=== PATIENT | female | born 1990 | race African-American/Black ===

== ENCOUNTER 2017-01-28 05:59 | Inpatient (IN) ==
[2017-01-28] MEDS ORDERED: CITRIC ACID/SODIUM CITRATE 30 ML UDCUP PO ONE (06:23)
[2017-01-28] MEDS ORDERED: FAMOTIDINE 20 MG/2 ML VIAL IV ONE (06:23)
[2017-01-28] MEDS ORDERED: ceFAZolin 2,000 MG in PREMIX 1 EACH IV ONE (06:23)
[2017-01-28] MEDS ORDERED: OXYTOCIN/LR 20 UNIT/1,000 ML BAG IV ONE ×2 (06:25→10:40)
[2017-01-28] MEDS: LACTATED RINGERS 1,000 ML IV SCH ×3 (06:44→22:42)
[2017-01-28 06:48] LABS: Basophils % 0.2 % (0.0-0.8); Eosinophils # 0.1 10*3/uL (0.0-0.87); Eosinophils % 0.7 % (0.00-10.9); Hematocrit 35.5 VOL% (35.7-47.0); Hemoglobin 11.5 GM/DL (12.0-16.0); Immature Granulocytes % 0.9 %; Immature Granulocytes Absolute 0.12 #; Lymphocytes # 1.6 10*3/uL (1.4-4.0); Lymphocytes % 12.3 % (21.3-54.2); Mean Corpuscular HGB Conc 32.4 GM/DL (32-36); Mean Corpuscular Hemoglobin 25 PG (27-34); Mean Corpuscular Volume 76.5 FL (87-102); Mean Platelet Volume 10.1 FL (9.6-12.0); Monocytes % 7.7 % (1.7-12.7); Neutrophils # 10.3 10*3/uL (1.4-7.4); Neutrophils % 78.2 % (38.7-73.9); Platelet Count 287 T/CUMM (130-400); Red Blood Count 4.64 MC/CUMM (3.8-5.5); White Blood Count 13.1 T/CUMM (4-12)
[2017-01-28 07:01] LABS: PT Patient Result 10.9 SECS; Partial Thromboplastin Time 30.8 SECS (0-40)
[2017-01-28 07:25] LABS: Albumin 2.6 G/DL (3.4-5.0); Bilirubin,Total 0.4 MG/DL (0.2-1.0); Calcium 8.4 MG/DL (8.5-10.1); Osmolality,Calculated 276.3 MOS/KG (273-304); Potassium 4.1 MMOL/L (3.5-5.1); Total Protein 6.2 G/DL (6.4-8.3)
[2017-01-28] MEDS ORDERED: ONDANSETRON 4 MG/2 ML VIAL ONE (08:29)
[2017-01-28] MEDS ORDERED: MORPHINE 10 MG/10 ML VIAL ONE (10:12)
[2017-01-28] MEDS ORDERED: ePHEDrine 50 MG/ML AMP ONE (10:12)
[2017-01-28] MEDS ORDERED: fentaNYL 100 MCG/2 ML VIAL ONE (10:12)
--- NOTE | 2017-01-28 10:17 | Anesthesia Post-Op ---
Anesthesia Post OP - Post Ansesthetic Evaluation Patient seen in post op: Yes Resp: within normal limits CV: within normal limits Mental: within normal limits Temp: within normal limits [id number]: within normal limits Nausea and Vomiting: within normal limits Pain: within normal limits
[2017-01-28] MEDS ORDERED: diphenhydrAMINE 50 MG/1 ML VIAL IV ONE (10:25)
[2017-01-28] MEDS ORDERED: ACETAMINOPHEN 325 MG TABLET PO PRN (10:40)
[2017-01-28] MEDS ORDERED: SIMETHICONE CHEW 80 MG TABLET PO PRN (10:40)
[2017-01-28] MEDS ORDERED: RHO(D) IMMUNE GLOBULIN 300 MCG SYRINGE IM ONE (10:40)
[2017-01-28] MEDS ORDERED: ONDANSETRON 4 MG/2 ML VIAL IV PRN (10:40)
[2017-01-28] MEDS ORDERED: LACTATED RINGERS 1,000 ML IV SCH (11:00)
--- NOTE | 2017-01-28 11:05 | OB/GYN History & Physical ---
History of Present Illness Chief complaint: Admitted for Repeat C/S History of present illness: Ms. Woody is a 26 year old female admitted for repeat C/S. She has a significant hx of hysteroscopy, D&C with uterine perforation but documentation does not define where the perforation was, so pt's desire to was discouraged with this history. Pt without any significant complications. Home Medications Medication Instructions Recorded Confirmed Type Methyldopa [Aldomet] 1 tablet PO BID 01/22/17 01/28/17 History Pnv No.95/Ferrous Fum/Folic AC 1 tablet PO DAILY 01/22/17 01/28/17 History [ Tablet] Allergies Allergy/AdvReac Type Severity Reaction Status Date / Time No Known Allergies Allergy Verified 07/01/16 12:44 Medical,Surgical,& Family Hx - Medical History Psychological: No history of: Anxiety Disorders, ADHD, Behavior Problems, Bipolar Disorder, Depression, Previous Suicide Attempt, Psychiatric/Substance Abuse Tx, Schizophrenia, Violent Behavior, Psychiatric Problems Hematology: No history of: Blood Transfusion Reaction Other: No history of: Anesthesia Reactions, Anaphylaxis - Surgical History Thoracic Surgeries: Patient denies;: Lobectomy Neurologic Surgeries: Patient denies: Neurologic Surgery Reproductive Surgeries: Surgical HX of;: Section (2012), Dilation and Curettage (2014) Patient denies;: Genitourinary Surgery, Hysterectomy, Tubal Ligation - Family History Family History: Reports;: Family Diabetes (father), Family Hypertension (mother) Denies;: Family Psychiatric Problems, Family Stroke, Additional Family History - Social History Smoking Status: Never smoker Frequency of Alcohol Use: None Type of Drug Use: None 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
--- NOTE | 2017-01-28 11:11 | History and Physical Update ---
History and Physical Update - History and Physical H&P was reviewed, the patient examined and there: are no changes in the patients condition since last H&P was completed. - Dictation Physical: refer to scanned H&P - Physical Exam Mental Status: alert and oriented Heart: regular rate and rhythm Lung: clear to auscultation Abdomen: within normal limits Vitals: within normal limits History and Physical Changes: for repeat C/S at 39 wks. Since Primary C/S, patient has had a Hysteroscopy , D&C with uterine perforation with no documentation of where the perforation was so discouraged in this patient. Pt with no other significant complications.
[2017-01-28] MEDS ORDERED: HYDROCORTISONE 1% CREAM 28 GM TUBE TOP PRN (13:48)
[2017-01-28] MEDS: diphenhydrAMINE 50 MG/1 ML VIAL IV PRN (15:30)
[2017-01-28] MEDS: oxyCODONE/ACETAMINOPHEN 5-325 MG TABLET PO PRN (19:55)
[2017-01-28] MEDS: DOCUSATE SODIUM 100 MG CAPSULE PO SCH (22:20)
[2017-01-29] MEDS: oxyCODONE/ACETAMINOPHEN 5-325 MG TABLET PO PRN ×3 (05:17→22:39)
[2017-01-29] MEDS: IBUPROFEN 800 MG TABLET PO PRN ×3 (05:17→22:38)
[2017-01-29 06:29] LABS: Basophils % 0.1 % (0.0-0.8); Eosinophils % 0.1 % (0.00-10.9); Hematocrit 28.1 VOL% (35.7-47.0); Immature Granulocytes % 0.6 %; Lymphocytes # 1.5 10*3/uL (1.4-4.0); Lymphocytes % 8.7 % (21.3-54.2); Mean Corpuscular HGB Conc 33.5 GM/DL (32-36); Mean Corpuscular Hemoglobin 25 PG (27-34); Mean Corpuscular Volume 74.7 FL (87-102); Mean Platelet Volume 10.2 FL (9.6-12.0); Monocytes # 1.3 10*3/uL (0.11-0.8); Monocytes % 7.8 % (1.7-12.7); Neutrophils # 14.1 10*3/uL (1.4-7.4); Neutrophils % 82.7 % (38.7-73.9); Platelet Count 263 T/CUMM (130-400); Red Blood Count 3.76 MC/CUMM (3.8-5.5); Red Cell Distribution Width 16.1 % (9.3-17.3)
[2017-01-29 06:38] LABS: Hemoglobin 9.4 GM/DL (12.0-16.0); White Blood Count 17.1 T/CUMM (4-12)
[2017-01-29] MEDS: LACTATED RINGERS 1,000 ML IV SCH (06:45)
[2017-01-29] MEDS: MAGNESIUM HYDROXIDE SUSP 30 ML UDCUP PO PRN ×2 (08:52→21:27)
[2017-01-29] MEDS: DOCUSATE SODIUM 100 MG CAPSULE PO SCH ×2 (08:52→21:27)
[2017-01-29] MEDS: MULTIVITAMIN (PRENATAL) TABLET PO SCH (08:52)
--- NOTE | 2017-01-29 11:51 | Pathology Report from [facility] ---
ACCESSION # : [id number] PATIENT NAME : Wilmar Barnett ORDERING DR : AGATHA NOLASCO CLINICAL HX: IUP @ 39+ wks, repeat C/S POST-OP DX: Same SPECIMEN INFO: Placenta GROSS DESCRIPTION: Received fresh labeled "WILMAR BARNETT" is a 529 gm placenta measuring 17.0 x 16.0 x 2.8 cm. The membranes are barclay and translucent. The umbilical cord measures 47.0 cm, contains three vessels and is centrally inserted. The maternal surface is blue lezama and intact. The surface is intact with an area of calcification noted measuring 3.5 x 3.5 cm. Sectioning reveals no gross abnormalities. Sections submitted A- membranes and cord, B - and maternal surfaces. DIAGNOSIS FOR WILMAR BARNETT: PLACENTA, MEMBRANES, UMBILICAL CORD: Placental infarction with dystrophic calcification, mild intervillous blood. Tri-vessel umbilical cord. Membranes with focal acute and chronic inflammation and attached blood. SERVICE DATE: 01/28/2017 REPORT DATE: 01/29/2017 PATHOLOGIST: Cherelle Leon
[2017-01-29] MEDS: CYCLOBENZAPRINE 10 MG TABLET PO SCH (20:00)
--- NOTE | 2017-01-29 22:59 | OB/GYN Progress Note ---
Assessment and Plan (1) delivery delivered Status: Acute Assessment and plan: Routine p care Current Visit: Yes (2) Neck pain Status: Acute Assessment and plan: Will add Flexeril, continue heating pad, ask Anesthesia to assess in AM. 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 Bruising noted about SAB skin puncture site. No specific TTP, Pt did have prolonged positioning with head flexed on chest for attempted SAB placement and suspect this is cause of her pain. Heating pad helps when she is lying on it but then pain returns when she is up moving again. Pain meds don't really help with this pain much. Otherwise pt denies incisional pain SHe is eating well. Ambulating well. She has been afebrile since surgery. 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 - Constitutional Vitals: Vital Signs Temp Pulse Resp BP Pulse Ox 01/29/17 20:00 97.9 F 85 20 139/84 98 01/29/17 16:00 96.7 F L 88 20 121/56 94 L 01/29/17 11:41 96.9 F L 84 20 103/58 98 01/29/17 07:10 97 F L 91 H 20 121/67 97 01/29/17 04:00 98.6 F 94 H 20 118/77 97 01/29/17 02:00 18 01/29/17 00:00 97.6 F 95 H 20 122/62 98 General appearance: no acute distress, morbidly obese - Head Head exam: Present: normal inspection, normocephalic - Respiratory Respiratory exam: Present: clear to auscultation bilaterally - Cardiovascular Cardiovascular exam: Present: regular rate and rhythm - GI/Abdominal GI/Abdominal exam: Present: soft (Incision intact without E/I/D) - Extremities Exam Extremities exam: Present: normal inspection - Back Exam Back exam: Present: other (bruising about SAB skin puncture site. No TTP) - Neurological Exam Neurological exam: Present: alert, oriented X3 - Psychiatric Psychiatric exam: Present: normal affect, normal mood - Skin Skin exam: Present: normal color, warm Results - Labs CBC & BMP: 01/29/17 06:18 01/28/17 06:41 Lab Results: I have reviewed the past 24 hour labs
[2017-01-30] MEDS: CYCLOBENZAPRINE 10 MG TABLET PO SCH ×3 (09:09→21:00)
[2017-01-30] MEDS: DOCUSATE SODIUM 100 MG CAPSULE PO SCH ×2 (09:09→21:00)
[2017-01-30] MEDS: MULTIVITAMIN (PRENATAL) TABLET PO SCH (09:09)
[2017-01-30] MEDS: oxyCODONE/ACETAMINOPHEN 5-325 MG TABLET PO PRN (09:09)
[2017-01-30] MEDS: NAPROXEN 500 MG TABLET PO SCH ×2 (10:10→17:40)
[2017-01-30] MEDS: diphenhydrAMINE 50 MG/1 ML VIAL IV PRN (11:14)
[2017-01-30] MEDS ORDERED: SUMAtriptan 6 MG/0.5 ML VIAL SUBCUT ONE ×2 (11:51→18:00)
[2017-01-30] MEDS: BUTALBITAL/ACETAMIN/CAFFEINE 50-325-40 MG TABLET PO PRN ×2 (12:10→19:47)
[2017-01-30] MEDS: LACTATED RINGERS 1,000 ML IV SCH (12:52)
[2017-01-30] MEDS: MAGNESIUM HYDROXIDE SUSP 30 ML UDCUP PO PRN (21:00)
[2017-01-31] MEDS: LACTATED RINGERS 1,000 ML IV SCH
[2017-01-31] MEDS: NAPROXEN 500 MG TABLET PO SCH ×2 (02:00→10:15)
[2017-01-31 07:52] VITALS: BP 145/78
--- NOTE | 2017-01-31 08:01 | Discharge Summary ---
Hospital Course - Hospital Course Hospital Course: Pt admitted for scheduled repeat C/S. She underwent the procedure without complication. Her course has been remarkable for pain from SAB site to base of neck somewhat managed with muscle relaxer and anti-inflammatories along with heat packs. Evaluation by anesthesia without significant findings. She is ready for dismissal today. She has been afebrile. She is ambulating without difficulty. She is voiding well. Diagnosis - Discharge Diagnosis (1) delivery delivered Status: Acute (2) Neck pain Status: Acute Specialty Discharge - Follow Up or Referrals Discharge Plan - Discharge Data Disposition: Disch To Home/Self Care Condition at Discharge: Stable Discharge Diet: regular diet Activity: other (pelvic rest x 6 wks) Hygiene: may shower Weight Bearing at Discharge: full weight bearing Driving: not until seen by doctor Contact your physician if you experience:: fever over 101, Difficulty voiding, Redness or swelling, Nausea/Vomiting, Shortness of breath, Bleeding, pain uncontrolled by pain medications - Discharge Medications New Butalbital/Acet/Caff 50-325-40 [Fioricet 50-325-40 mg Tablet] 1 tablet PO Q4H PRN #30 tablet PRN Reason: Headache Cyclobenzaprine [Flexeril] 10 mg PO TID #10 tablet Naproxen [Naprosyn Tab] 500 mg PO Q8H PRN #30 tablet PRN Reason: Pain No Action Pnv No.95/Ferrous Fum/Folic AC [ Tablet] 1 tablet PO DAILY Methyldopa [Aldomet] 1 tablet PO BID - Follow Up or Referral Follow Up: Sandy Rios DO [Physician] - 1 Week - Forms/Instructions Instructions: Section (DC), Perineal Care (DC), Bleeding (DC) Exam - Constitutional Vitals: Period Temp Pulse Resp BP Sys/Kim Pulse Ox Last 24 Hr 96.6 F-97.9 F 83-95 20-20 113-145/59-78 98-99 General appearance: no acute distress, morbidly obese - Head Head exam: Present: normal inspection, normocephalic - Eye Eye exam: Present: EOMI - Respiratory Respiratory exam: Present: clear to auscultation bilaterally - Cardiovascular Cardiovascular exam: Present: regular rate and rhythm - GI/Abdominal GI/Abdominal exam: Present: soft (fundus firm, nontender. Incision intact without E/I/D) - Extremities Exam Extremities exam: Present: normal inspection - Neurological Exam Neurological exam: Present: alert, oriented X3 - Psychiatric Psychiatric exam: Present: normal affect, normal mood - Skin Skin exam: Present: normal color, warm DS: Provider Date of admission: 01/28/17 05:59 Primary care physician: . No PCP Attending physician on admission: Sandy Rios DO Consults: 01/28/17 06:23 Consult to Anesthesiology [CONS] Routine Consulting Provider: Reason for Anesthesiology: Pre-op Clearance 01/28/17 07:03 Consult to Dietitian [CONS] Routine Reason for Dietitian: Dietary Consult 01/28/17 10:41 Consult to Plastic Technician [CONS] Routine Consult Plastic Technician: Breast Feeding 01/30/17 06:14 Consult to Anesthesiology [CONS] Routine Consulting Provider: Reason for Anesthesiology: Other Consult Comment: neck and back pain Discharging clinician: Sandy Rios DO Expected date of discharge: 01/31/17
[2017-01-31] MEDS: CYCLOBENZAPRINE 10 MG TABLET PO SCH (08:56)
[2017-01-31] MEDS: DOCUSATE SODIUM 100 MG CAPSULE PO SCH (08:56)
[2017-01-31] MEDS: MULTIVITAMIN (PRENATAL) TABLET PO SCH (08:56)
[2017-01-31] MEDS ORDERED: DIPH/TET/ACEL PERT BOOSTER VACCINE 0.5 ML VIAL IM ONE ×2 (10:36→10:40)
== END 2017-01-31 12:45 | disposition home or self-care (01) | DRG 765 ==
LOC: N.LD 05:59 → N.OB 12:35
PROVIDERS: ADMIT Obstetrics & Gynecology; ATTEND Obstetrics & Gynecology
PROC: LDCSECT (ICD-10-PCS; 2017-01-28 08:29)